=== PATIENT | female | born 1975 | race American Indian/Alaskan Native ===

== ENCOUNTER 2016-07-16 19:53 | Emergency (ER) | payer SELFPAY ==
[2016-07-16 21:17] LABS: Eosinophils % (Auto) 2.4 % (0.0-4.3)
[2016-07-16 21:30] LABS: Anion Gap 17 mmol/L; BUN/Creatinine Ratio 22.85; Blood Urea Nitrogen 16 mg/dL (7-17); Calcium 9.1 mg/dL (8.4-10.2); Carbon Dioxide 26 mmol/L (22-30); Chloride 101.1 mmol/L (98-107); Glucose 104 mg/dL (65-100); Potassium 3.7 mmol/L (3.6-5.0); Sodium 140 mmol/L (137-145)
[2016-07-16 21:34] LABS: Hematocrit 39.7 % (30.3-42.9); Hemoglobin 12.7 gm/dl (10.1-14.3); Mean Corpuscular HGB Conc 32 % (30-34); Mean Corpuscular Hemoglobin 27 pg (28-32); Mean Corpuscular Volume 83 fl (79-97); Red Blood Count 4.77 M/mm3 (3.65-5.03); White Blood Count 4.5 K/mm3 (4.5-11.0)
[2016-07-16 21:35] LABS: Basophils % (Auto) 0.4 % (0.0-1.8); Diff Status Complete; Platelet Count 171 K/mm3 (140-440); Red Cell Distribution Width 13.9 % (13.2-15.2)
[2016-07-17] MEDS ORDERED: DELTASONE PO ONE (05:35)
[2016-07-17] MEDS ORDERED: TYLENOL PO ONE (05:35)
--- NOTE | 2016-07-17 05:42 | Emergency Department Report ---
HPI - General Chief Complaint: Chest Pain Time Seen by Provider: 07/17/16 05:05 - HPI HPI: The patient is a 40-year-old female who presents for evaluation of chest pain. The patient reports 1 week of right-sided chest pain, on and off since onset, sharp in quality, 8 out of 10 in severity, radiating to the right arm, elicited with movement of the upper body. She states that her pain is consistent with previous episodes of chest pain attacks. The patient denies fever, trauma to the chest wall, dyspnea, cough, hemoptysis, palpitations, dizziness, syncope, unilateral leg swelling, calf muscle pain. Patient also denies cocaine or other stimulant use, history of DVT or PE, recent immobilization, or recent cancer. ED Past Medical Hx - Past Medical History Hx Congestive Heart Failure: No Hx Diabetes: No Hx Asthma: Yes (childhood asthma outgrew) Hx COPD: No Hx HIV: No Additional medical history: abdominal hernia, hypoglycemia, herniated disc, lupus - Surgical History Additional Surgical History: keloid surgery - Social History Smoking Status: Never Smoker Substance Use Type: None - Medications Home Medications: Home Medications Medication Instructions Recorded Confirmed Last Taken Type Sulfamethoxazole/Trimethoprim 1 each PO BID #20 tablet 02/06/15 Unknown Rx [Bactrim DS TAB] traMADol [Ultram] 50 mg PO Q6HR PRN #20 tablet 02/06/15 Unknown Rx HYDROcodone/APAP 7.5-325 [Monson 1 each PO Q8HR PRN #12 tablet 07/17/16 Unknown Rx 7.5-325 mg TAB] Prednisone [predniSONE 10 mg 10 mg PO .TAPER #1 tab.ds.pk 07/17/16 Unknown Rx (6-Day Pack, 21 Tabs)] ED Review of Systems ROS: Stated complaint: CP/KIDNEY PAIN Other details as noted in HPI Constitutional: denies: fever ENT: denies: throat or neck pain Respiratory: denies: cough, shortness of breath Cardiovascular: reports chest pain Endocrine: denies unexplained weight loss or gain Gastrointestinal: denies: abdominal pain, nausea Genitourinary: denies: dysuria Musculoskeletal: denies: leg swelling Skin: denies: rash Neurological: denies: headache Hematological/Lymphatic: denies: easy bleeding or easy bruising Psych: denies sadness or hopelessness Physical Exam - Physical Exam Vital Signs: Vital Signs 07/16/16 07/17/16 07/17/16 20:10 03:53 04:35 Temperature 98.6 F 97.6 F 98.4 F Pulse Rate 82 66 61 Respiratory 18 18 17 Rate Blood Pressure 118/72 138/92 Blood Pressure 134/80 [Left] O2 Sat by Pulse 100 100 100 Oximetry Physical Exam: General: well-nourished, well-developed, no acute distress Head: Normocephalic, atraumatic Eyes: normal sclera ENT: Mucous membranes are pink and moist Neck: trachea midline, neck supple, No neck stiffness, no cervical adenopathy Respiratory: Breath sounds equal bilaterally, no wheezing, rales, or rhonchi Cardio: S1 and S2 present, no murmurs, rubs, gallops, capillary refill is brisk Abdomen: Normoactive bowel sounds, soft abdomen, no rigidity, no guarding or rebound tenderness Musc: No pitting edema Skin: No rash Neuro: no facial drooping, normal speech Psych: Normal affect ED Course Vital Signs 07/16/16 07/17/16 07/17/16 20:10 03:53 04:35 Temperature 98.6 F 97.6 F 98.4 F Pulse Rate 82 66 61 Respiratory 18 18 17 Rate Blood Pressure 118/72 138/92 Blood Pressure 134/80 [Left] O2 Sat by Pulse 100 100 100 Oximetry ED Medical Decision Making - Lab Data Result diagrams: 07/16/16 21:00 07/16/16 21:00 - Medical Decision Making The patient was seen and examined by myself. The patient is placed on a cut off sawyer log and continuous pulse ox. On initial evaluation, the patient was found to be in no distress. EKG exhibited normal sinus rhythm, and was negative for ST elevation or depression or other findings suggestive of acute cardiac infarct. Labs and imaging are obtained. The patient is given a tablet of Tylenol for her chest pain. Chest x-ray is negative for pneumothorax, focal consolidation, pulmonary vascular congestion, pleural effusion, or other obvious acute cardiopulmonary disease process. Lab results were non-concerning including levels of troponin, WBC, hemoglobin, hematocrit, electrolytes, renal function. The patient was reevaluated and reported that their symptoms were markedly improved. As the patient has a NOÉ risk score less than 2, and a well 's score less than 2, the patient is at low risk of ACS or pulmonary emboli etiology of their symptoms. The patient is stable for discharge with outpatient follow-up. The patient is given follow-up and return instructions. The patient expressed understanding and agreed with the plan. The patient is discharged in stable condition. Critical care attestation.: If time is entered above; I have spent that time in minutes in the direct care of this critically ill patient, excluding procedure time. ED Disposition Clinical Impression: Acute chest pain Disposition: DISCHARGED TO HOME OR SELFCARE Is pt being admited?: No Does the pt Need Aspirin: No Condition: Stable Instructions: Chest Pain (ED) Referrals: MONICA CRUZ MD [Primary Care Provider] - 3-5 Days Time of Disposition: 05:49
[2016-07-17 06:37] VITALS: BP 93/52
--- NOTE | 2016-07-17 09:51 | XRay Report ---
CHEST TWO VIEWS: 07/16/16 19:53:00 CLINICAL: Shortness of breath. COMPARISON: 11/01/14 FINDINGS: Normal heart and pulmonary vasculature. The lungs are normally expanded and clear. Scoliosis of the thoracic spine. IMPRESSION: No acute cardiopulmonary process.
== END 2016-07-17 06:50 | disposition home or self-care (01) ==
LOC: ED 07-17 00:06
DX: R07.89 Other chest pain (principal); J45.909 Unspecified asthma, uncomplicated
CPT/HCPCS: 36415; 71020; 80048; 84484; 85025; 93005; 93010; 99284; J7512